=== PATIENT | female | born 1950 | race Caucasian/White ===

== ENCOUNTER 2023-01-01 13:42 | Observation (INO) | payer OTHER ==
[2023-01-01] MEDS ORDERED: SODIUM CHLORIDE 0.9% 1000 ML INFUS.BAG IV ONE (14:03)
[2023-01-01] MEDS ORDERED: ONDANSETRON 4 MG/2 ML VIAL IVPUSH ONE (14:03)
[2023-01-01] MEDS ORDERED: ACETAMINOPHEN 1000 MG/100 ML BAG IVPB ONE (14:03)
[2023-01-01] MEDS ORDERED: FAMOTIDINE 20 MG/50 ML IVPB 20 MG/50 ML MG IVPB ONE ×2 (14:03→16:10)
[2023-01-01 14:48] LABS: HEMATOCRIT 36.7 % (32.4-45.2); HEMOGLOBIN 12.2 G/dL (10.7-15.3); MCH 29.5 pg (25.7-33.7); MCHC 33.2 g/dl (32.0-36.0); MEAN CELL VOLUME 88.9 fl (80-96); MEAN PLT VOLUME 7.2 fl (7.5-11.1); PLATELET COUNT 260.3 10^3/uL (134-434); RBC 4.13 10^6/uL (3.60-5.2); WHITE BLOOD COUNT 15.3 10^3/uL (4.0-10.8)
[2023-01-01 15:11] LABS: INR 1.08 (0.83-1.09); PROTHROMBIN TIME (PATIENT) 12.5 SEC (9.7-13.0)
[2023-01-01 15:13] LABS: ACTIVATED PTT 31.5 SECONDS (25.2-36.5)
[2023-01-01 15:21] LABS: ALBUMIN 4.1 g/dl (3.4-5.0); BILIRUBIN,TOTAL 0.9 mg/dl (0.2-1); BLOOD UREA NITROGEN 15.7 mg/dl (7-18); CALCIUM 8.5 mg/dl (8.5-10.1); CREATININE 0.7 mg/dl (0.6-1.3); SGOT/AST 21.8 U/L (15-37); SGPT/ALT 13.8 U/L (7-52); TOT PROT 6.5 g/dl (6.4-8.2)
[2023-01-01] MEDS ORDERED: CEFTRIAXONE 1 GM in DEXTROSE 5%-WATER - 100 ML IVPB ONE (15:28)
[2023-01-01 16:02] VITALS: BMI 25.0
[2023-01-01] MEDS ORDERED: cefTRIAXone SODIUM 1 GM VIAL ONE (16:04)
[2023-01-01 16:20] LABS: EPITHELIAL CELLS FEW /hpf
[2023-01-01 16:28] LABS: PLATELET ESTIMATE ADEQUATE
[2023-01-01] MEDS ORDERED: ACETAMINOPHEN 325 MG TABLET (FP) PO PRN (20:29)
[2023-01-01] MEDS ORDERED: DOCUSATE SODIUM 100 MG CAPSULE (FP) PO PRN (20:29)
[2023-01-01] MEDS: INSULIN SLIDING SCALE (NOVOLOG) 1 VIAL SQ SCH (22:37)
[2023-01-01] MEDS: ACETAMINOPHEN 1000 MG/100 ML BAG IVPB PRN (23:58)
[2023-01-02] MEDS: INSULIN SLIDING SCALE (NOVOLOG) 1 VIAL SQ SCH ×4 (07:00→22:02)
[2023-01-02 09:06] LABS: BLOOD UREA NITROGEN 11.7 mg/dl (7-18); CALCIUM 7.8 mg/dl (8.5-10.1); CREATININE 0.7 mg/dl (0.6-1.3); PHOSPHOROUS 2.43 (2.5-4.9)
[2023-01-02] MEDS ORDERED: CEFTRIAXONE 1 GM in DEXTROSE 5%-WATER - 50 ML IVPB SCH (10:00)
[2023-01-02] MEDS ORDERED: PHENAZOPYRIDINE HCL 100 MG TABLET (FP) PO ONE (11:30)
[2023-01-02 11:54] LABS: BASO % 0.2 % (0-2.0); EOS % 0.6 % (0-4.5); HEMATOCRIT 31.8 % (32.4-45.2); HEMOGLOBIN 10.8 GM/dL (10.7-15.3); LYMPH % 15.5 % (8-40); MCH 29.7 pg (25.7-33.7); MEAN CELL VOLUME 87.5 fl (80-96); MONO % 8.6 % (3.8-10.2); NEUT % 75.1 % (42.8-82.8); PLATELET COUNT 253 10^3/uL (134-434); RBC 3.63 M/mm3 (3.60-5.2); RDW 15.6 % (11.6-15.6); WHITE BLOOD COUNT 13.1 K/mm3 (4.0-10.0)
[2023-01-02] MEDS: ACETAMINOPHEN 1000 MG/100 ML BAG IVPB PRN (14:09)
[2023-01-02] MEDS: ACETAMINOPHEN 325 MG TABLET (FP) PO PRN (19:30)
[2023-01-02] MEDS ORDERED: ACETAMINOPHEN 325 MG TABLET (FP) PO PRN (20:29)
[2023-01-03] MEDS: ACETAMINOPHEN 325 MG TABLET (FP) PO PRN ×3 (05:54→23:56)
[2023-01-03] MEDS: INSULIN SLIDING SCALE (NOVOLOG) 1 VIAL SQ SCH ×4 (07:03→22:05)
[2023-01-03] MEDS ORDERED: PIPERACILLIN/TAZOB 3.375 GM 3.375 GM in DEXTROSE 5%-WATER - 50 ML IVPB ONE (07:15)
[2023-01-03 08:25] LABS: HEMATOCRIT 32.3 % (32.4-45.2); HEMOGLOBIN 10.5 G/dL (10.7-15.3); MCH 28.7 pg (25.7-33.7); MCHC 32.5 g/dl (32.0-36.0); MEAN CELL VOLUME 88.2 fl (80-96); MEAN PLT VOLUME 7.4 fl (7.5-11.1); RBC 3.66 10^6/uL (3.60-5.2); RDW 14.6 % (11.6-15.6); WHITE BLOOD COUNT 10.4 10^3/uL (4.0-10.8)
[2023-01-03] MEDS: LACTATED RINGERS SOLUTION 1,000 ML/1,000 ML INFUS.BAG IV SCH (08:34)
[2023-01-03 08:36] LABS: ALBUMIN 3.5 g/dl (3.4-5.0); BILIRUBIN,TOTAL 0.7 mg/dl (0.2-1); BLOOD UREA NITROGEN 10.9 mg/dl (7-18); CALCIUM 7.8 mg/dl (8.5-10.1); CREATININE 0.7 mg/dl (0.6-1.3); MAGNESIUM 1.8 mg/dL (1.8-2.4); PHOSPHOROUS 2.31 (2.5-4.9); POTASSIUM 3.4 mmol/L (3.5-5.1); SGOT/AST 22.7 U/L (15-37); SGPT/ALT 14.9 U/L (7-52); TOT PROT 5.7 g/dl (6.4-8.2)
[2023-01-03] MEDS ORDERED: POTASSIUM PHOSPHATE 15 MM in SODIUM CHLORIDE 250 ML IVPB ONE (09:30)
[2023-01-03] MEDS: LACTOBACILLUS ACIDOPHILUS 1 TABLET PO SCH (09:47)
[2023-01-03] MEDS: PIPERACILLIN/TAZOB 4.5 GM 4.5 GM in DEXTROSE 5%-WATER 100 ML IVPB SCH (17:23)
[2023-01-03 22:49] VITALS: RESP 18
[2023-01-04] MEDS: PIPERACILLIN/TAZOB 4.5 GM 4.5 GM in DEXTROSE 5%-WATER 100 ML IVPB SCH ×2 (02:48→09:13)
[2023-01-04] MEDS: INSULIN SLIDING SCALE (NOVOLOG) 1 VIAL SQ SCH ×4 (06:06→22:34)
[2023-01-04 08:54] LABS: HEMATOCRIT 32.6 % (32.4-45.2); HEMOGLOBIN 10.6 G/dL (10.7-15.3); MCH 28.9 pg (25.7-33.7); MCHC 32.5 g/dl (32.0-36.0); MEAN CELL VOLUME 89.2 fl (80-96); MEAN PLT VOLUME 7.4 fl (7.5-11.1); PLATELET COUNT 246.5 10^3/uL (134-434); RBC 3.66 10^6/uL (3.60-5.2); RDW 15.2 % (11.6-15.6); WHITE BLOOD COUNT 5.5 10^3/uL (4.0-10.8)
[2023-01-04] MEDS: LACTOBACILLUS ACIDOPHILUS 1 TABLET PO SCH (09:13)
[2023-01-04] MEDS: LACTATED RINGERS SOLUTION 1,000 ML/1,000 ML INFUS.BAG IV SCH (09:14)
[2023-01-04 09:22] LABS: BLOOD UREA NITROGEN 8.5 mg/dl (7-18); CALCIUM 7.8 mg/dl (8.5-10.1); CREATININE 0.6 mg/dl (0.6-1.3); POTASSIUM 3.3 mmol/L (3.5-5.1)
[2023-01-04] MEDS ORDERED: ERTAPENEM SODIUM 1 GM in SODIUM CHLORIDE 50 ML IVPB SCH (10:00)
[2023-01-05 06:36] VITALS: TEMP 98.4
[2023-01-05 07:49] LABS: HEMATOCRIT 32.8 % (32.4-45.2); HEMOGLOBIN 10.8 G/dL (10.7-15.3); MCH 29.1 pg (25.7-33.7); MCHC 32.9 g/dl (32.0-36.0); MEAN CELL VOLUME 88.5 fl (80-96); MEAN PLT VOLUME 7.2 fl (7.5-11.1); PLATELET COUNT 259.3 10^3/uL (134-434); RBC 3.71 10^6/uL (3.60-5.2); RDW 14.8 % (11.6-15.6); WHITE BLOOD COUNT 4.7 10^3/uL (4.0-10.8)
[2023-01-05 07:54] LABS: INR 1.08 (0.83-1.09); PROTHROMBIN TIME (PATIENT) 12.5 SEC (9.7-13.0)
[2023-01-05] MEDS: INSULIN SLIDING SCALE (NOVOLOG) 1 VIAL SQ SCH ×2 (08:15→11:40)
[2023-01-05 08:48] LABS: BLOOD UREA NITROGEN 13.3 mg/dl (7-18); CALCIUM 8.2 mg/dl (8.5-10.1); CREATININE 0.6 mg/dl (0.6-1.3); POTASSIUM 3.6 mmol/L (3.5-5.1)
[2023-01-05] MEDS ORDERED: ERTAPENEM SODIUM 1 GM in SODIUM CHLORIDE 50 ML IVPB SCH (10:00)
[2023-01-05 10:12] VITALS: BP 123/63; PULSE 79
[2023-01-05] MEDS: LACTOBACILLUS ACIDOPHILUS 1 TABLET PO SCH (10:37)
== END 2023-01-05 12:52 | disposition home or self-care (01) ==
LOC: FER 13:42 → FM/S 16:20
PROVIDERS: ADMIT Internal Medicine; ATTEND Internal Medicine
PROC: 3E033NZ Introduction of Analgesics, Hypnotics, Sedatives into Peripheral Vein, Percutaneous Approach (ICD-10-PCS; principal; 2023-01-01)
PROC: 3E03329 Introduction of Other Anti-infective into Peripheral Vein, Percutaneous Approach (ICD-10-PCS; 2023-01-01)
PROC: 3E0337Z Introduction of Electrolytic and Water Balance Substance into Peripheral Vein, Percutaneous Approach (ICD-10-PCS; 2023-01-01)
PROC: 3E033GC Introduction of Other Therapeutic Substance into Peripheral Vein, Percutaneous Approach (ICD-10-PCS; 2023-01-01)
DX: A41.9 Sepsis, unspecified organism (principal); N39.0 Urinary tract infection, site not specified; I10 Essential (primary) hypertension; R50.9 Fever, unspecified; E11.9 Type 2 diabetes mellitus without complications; Z41.9 Encounter for procedure for purposes other than remedying health state, unspecified; Z90.49 Acquired absence of other specified parts of digestive tract; Z90.79 Acquired absence of other genital organ(s)
CPT/HCPCS: 36415; 36569; 71045-TC-FY; 74176-TC; 77001-TC-FY; 80048; 80053; 81003; 81015; 82962; 83605; 83735; 84100; 85025; 85027; 85610; 85730; 87040; 87086; 87186; 87635; 93005; 96361; 96365; 96366; 96367; 96368; 96375; 96376; 99285-25; C1751; G0378

== ENCOUNTER 2024-12-23 13:41 | Emergency (ER) | payer OTHER ==
[2024-12-23 14:02] VITALS: BP 152/92; PULSE 75; RESP 18; TEMP 97.8; BMI 26.5
[2024-12-23] MEDS ORDERED: MECLIZINE HCL 25 MG TABLET (FP) ONE (14:56)
[2024-12-23] MEDS: MECLIZINE HCL 25 MG TABLET (FP) PO ONE (15:10)
[2024-12-23 15:30] LABS: ABSOLUTE IMMATURE GRANULOCYTES 0.01 x10^3/uL (0.0-0.031); BASOPHILS # 0.02 x10^3/uL (0.01-0.08); EOSINOPHIL % 3.8 % (0.7-5.8); EOSINOPHILS # 0.26 x10^3/uL (0.04-0.36); MCHC 33.3 g/dl (32.2-35.5); MEAN CELL VOLUME 89.3 fl (79.4-94.8); MEAN PLT VOLUME 9.1 fl (9.4-12.3); MONOCYTE # 0.57 x10^3/uL (0.24-0.86); MONOCYTE % 8.2 % (4.7-12.5); RDW 14.0 % (12.4-16.6)
[2024-12-23 15:37] LABS: ALK PHOS 67.0 U/L (45-117); CO2 27.0 mmol/L (21-32); CREATININE 0.7 mg/dl (0.6-1.3); GLUCOSE,RANDOM 100.0 mg/dl (74-106); SGOT/AST 36.0 U/L (15-37); SGPT/ALT 33.0 U/L (7-52); TOT PROT 6.9 g/dl (6.4-8.2)
[2024-12-23 19:59] LABS: HCV DIAGNOSTIC IN-HOUSE W/RFLX NON-REACTIVE (NONREACTIVE); HIV INTERPRETATION NEGATIVE (NEGATIVE)
== END 2024-12-23 17:49 | disposition home or self-care (01) ==
LOC: FER 13:41
DX: H91.22 Sudden idiopathic hearing loss, left ear (principal); H93.13 Tinnitus, bilateral; R42 Dizziness and giddiness
CPT/HCPCS: 36415; 70450-TC; 80053; 81003; 84484; 85025; 86803; 87389; 93005; 99285-25